=== PATIENT | female | born 1975 ===

== ENCOUNTER 2018-05-06 17:13 | Emergency (ER) | payer SELFPAY ==
[2018-05-06 17:27] VITALS: BP 113/79; PULSE 90; RESP 20; TEMP 98.4; O2SAT 100
--- NOTE | 2018-05-06 17:56 | C.PDOC ---
History Of Present Illness 42 y/o female presents to the ER complaining of right heel pain which has been present for the past 2 months. Patient states that the pain is sharp and worse with walking. She has not take any medications for the pain. Pt followed up with a specialist a few weeks ago and he gave her prescription for X-Rays, which she has not had done. She is requesting X-rays today. Denies having injury to area, numbness, tingling, pain elsewhere, or any other associated symptoms. Chief Complaint (Nursing): Lower Extremity Problem/Injury History Per: Patient History/Exam Limitations: no limitations Onset/Duration Of Symptoms: Days Current Symptoms Are (Timing): Still Present Severity: Moderate Past Medical History Reviewed: Historical Data, Nursing Documentation, Vital Signs Vital Signs: Last Vital Signs Temp 98.4 F 05/06/18 17:22 Pulse 90 05/06/18 17:22 Resp 20 05/06/18 17:22 BP 113/79 05/06/18 17:22 Pulse Ox 100 05/06/18 17:22 - Medical History PMH: Anemia Denies: Chronic Kidney Disease Surgical History: Appendectomy - [facility] Procedures OTHER CAST APPLICATION (02/14/14) Family History: States: No Known Family Hx Denies: Stroke - Social History Hx Tobacco Use: No Hx Alcohol Use: No Hx Substance Use: No - Immunization History Hx Tetanus Toxoid Vaccination: No Hx Influenza Vaccination: No Hx Pneumococcal Vaccination: No Review Of Systems Except As Marked, All Systems Reviewed And Found Negative. Constitutional: Negative for: Fever, Chills Eyes: Negative for: Pain, Vision Change Cardiovascular: Negative for: Chest Pain, Palpitations Respiratory: Negative for: Cough, Shortness of Breath Gastrointestinal: Negative for: Nausea, Vomiting, Abdominal Pain Musculoskeletal: Positive for: Leg Pain, Foot Pain (right) Skin: Negative for: Rash, Lesions, Bruising Neurological: Negative for: Weakness, Numbness Physical Exam - Physical Exam Appears: Well, Non-toxic, No Acute Distress Skin: Normal Color, Warm, Dry, No Ecchymosis Head: Atraumatic, Normacephalic Eye(s): bilateral: Normal Inspection Nose: Normal Oral Mucosa: Moist Neck: Normal, Normal ROM, Supple Chest: Symmetrical Cardiovascular: Rhythm Regular Respiratory: Normal Breath Sounds, No Rales, No Rhonchi, No Wheezing Back: Normal Inspection, No Vertebral Tenderness, No Decreased ROM, No Paraspinal Tenderness Extremity: Normal ROM, Tenderness (tenderness to plantar aspect of right heel), No Pedal Edema, No Calf Tenderness, Capillary Refill (<2s), No Deformity, No Swelling Extremity: Right: Painful To Bear Weight, Bilateral: Atraumatic, No Pedal Edema, Normal Color And Temperature, Normal ROM Pulses: Left Dorsalis Pedis: Normal, Right Dorsalis Pedis: Normal Neurological/Psych: Oriented x3, Normal Speech, Normal Cognition, Normal Motor, Normal Sensation Gait: Steady ED Course And Treatment O2 Sat by Pulse Oximetry: 100 (RA) Pulse Ox Interpretation: Normal Medical Decision Making Medical Decision Making: Plan: --X-Ray-Right Foot --Tylenol PO Right foot XR - heel spur; no fracture or dislocation. Plan of care discussed with patient, and strict instructions given regarding prescriptions, importance of follow up, and signs to return to Emergency Department, to include worsening pain, numbness, paresthesias, or any other new/worsening symptoms. Patient verbalizes understanding of discussion. Patient A&Ox3, ambulating with steady gait, stable for discharge home. Disposition - Disposition Referrals: [facility] [Outside] [facility] [Outside] Disposition: HOME/ ROUTINE Disposition Time: 18:00 Condition: STABLE Additional Instructions: [place] naproxeno diariamente segn sea necesario para el dolor Llame a los registros mdicos si desea desean copia de stacie santa x Seguimiento con podologa dentro de 2 mcgraw Seguimiento con el mdico de cabecera dentro de 2 mcgraw Volver a ER para nuevos/empeoramiento de los sntomas Prescriptions: Naproxen [Naprosyn] 500 mg PO DAILY PRN #14 tablet PRN Reason: Pain, Moderate (4-7) Instructions: Heel Spurs Forms: Gen Discharge Inst English, [employer] (English) Print Language: TELUGU - Clinical Impression Clinical Impression: Heel spur - PA / DIRECTOR TRANSLATION / Resident Statement MD/DO has reviewed & agrees with the documentation as recorded. - Scribe Statement The provider has reviewed the documentation as recorded by the Scribe Luisa Nayak Provider Attestation All medical record entries made by the Scribe were at my direction and personally dictated by me. I have reviewed the chart and agree that the record accurately reflects my personal performance of the history, physical exam, medical decision making, and the department course for this patient. I have also personally directed, reviewed, and agree with the discharge instructions and disposition.
--- NOTE | 2018-05-07 11:10 | RAD ---
Date of service: 05/06/2018 PROCEDURE: Right Foot Radiographs. HISTORY: Plantar calcaneal spur. No fracture. No lytic or blastic osseous lesion. COMPARISON: None. FINDINGS: BONES: Normal. No fracture. JOINTS: Normal. SOFT TISSUES: Normal. OTHER FINDINGS: None. IMPRESSION: Plantar calcaneal spur noted.
== END 2018-05-06 18:34 | disposition home or self-care (01) ==
LOC: C.ER 17:13
DX: M77.31 Calcaneal spur, right foot (principal)

== ENCOUNTER 2018-06-14 08:01 | Emergency (ER) | payer SELFPAY ==
[2018-06-14 08:12] VITALS: BMI 30.5
[2018-06-14 08:16] VITALS: TEMP 98.3; O2SAT 96
[2018-06-14 09:19] VITALS: BP 105/67; PULSE 71; RESP 21
--- NOTE | 2018-06-14 09:32 | C.PDOC ---
History Of Present Illness 42 years old female presents to ED for complaints of cough productive of yellow sputum, nasal congestion and sore throat that began 4 days ago. Patient reports positive sick contact at home (son). She also reports 1 episode of diarrhea yesterday. Denies flu shot, recent travel, recent antibiotics use, fever, chills, chest pain, shortness of breath, abdominal pain, nausea, vomiting, headache, neck pain, back pain or dizziness. Chief Complaint (Nursing): Cough, Cold, Congestion History Per: Patient History/Exam Limitations: no limitations Onset/Duration Of Symptoms: Hrs Current Symptoms Are (Timing): Still Present Location Of Pain: None Sick Contacts (Context): None Associated Symptoms: Sore Throat, Cough, Sputum (yellow ), Nasal Congestion, Diarrhea. denies: Fever, Chills Ear Symptoms: Bilateral: None Recent travel outside of the [place]: No Past Medical History Reviewed: Historical Data, Nursing Documentation, Vital Signs Vital Signs: Last Vital Signs Temp 98.3 F 06/14/18 08:12 Pulse 71 06/14/18 09:19 Resp 21 06/14/18 09:19 BP 105/67 06/14/18 09:19 Pulse Ox 96 06/14/18 09:19 - Medical History PMH: Anemia Denies: Chronic Kidney Disease Surgical History: Appendectomy - [facility] Procedures OTHER CAST APPLICATION (02/14/14) Family History: States: Unknown Family Hx Denies: Stroke - Social History Hx Tobacco Use: No Hx Alcohol Use: No Hx Substance Use: No - Immunization History Hx Tetanus Toxoid Vaccination: No Hx Influenza Vaccination: No Hx Pneumococcal Vaccination: No Review Of Systems Except As Marked, All Systems Reviewed And Found Negative. Constitutional: Negative for: Fever, Chills ENT: Positive for: Nose Congestion, Other (Sore throat ) Cardiovascular: Negative for: Chest Pain, Palpitations, Light Headedness Respiratory: Positive for: Cough, Sputum (yellow ). Negative for: Shortness of Breath Gastrointestinal: Positive for: Diarrhea. Negative for: Nausea, Vomiting, Abdominal Pain Genitourinary: Negative for: Dysuria, Frequency Musculoskeletal: Negative for: Neck Pain, Back Pain Skin: Negative for: Rash Neurological: Negative for: Weakness, Numbness, Headache, Dizziness Physical Exam - Physical Exam Appears: Well, Non-toxic, No Acute Distress Skin: Normal Color, Warm, Dry, No Rash Head: Atraumatic, Normacephalic Eye(s): bilateral: Normal Inspection, PERRL, EOMI Ear(s): Bilateral: Normal, Other (Cerumen impaction ) Nose: Normal Oral Mucosa: Moist Throat: Normal, No Erythema, No Exudate, No Drooling Neck: Normal ROM, Supple Cardiovascular: Rhythm Regular Respiratory: Normal Breath Sounds, No Rales, No Rhonchi, No Wheezing Gastrointestinal/Abdominal: Bowel Sounds (Active ), Soft, No Tenderness Back: Normal Inspection, No CVA Tenderness Extremity: Normal ROM Extremity: Bilateral: Atraumatic, No Pedal Edema, Normal Color And Temperature, Normal ROM Pulses: Left Radial: Normal, Right Radial: Normal Neurological/Psych: Oriented x3, Normal Speech Gait: Steady ED Course And Treatment O2 Sat by Pulse Oximetry: 96 (RA ) Pulse Ox Interpretation: Normal - Other Rad CXR X-Ray: Viewed By Me, Read By Radiologist Interpretation: Date of service: 06/14/2018. HISTORY: Cough. COMPARISON: No prior. TECHNIQUE: Chest PA and lateral. FINDINGS: LUNGS: Mild linear atelectasis and/or scarring left CP angle region. PLEURA: No significant pleural effusion identified. No pneumothorax apparent. CARDIOVASCULAR: No aortic atherosclerotic calcification present. Heart is mildly enlarged th. No pulmonary vascular congestion. OSSEOUS STRUCTURES: No significant abnormalities. VISUALIZED UPPER ABDOMEN: Normal. OTHER FINDINGS: None. IMPRESSION: Mild linear atelectasis and/or scarring left CP angle region. Medical Decision Making Medical Decision Making: Plan: * Rapid Strep * POC preg * CXR Diagnostic testing results and plan of care discussed with patient. Strict instructions given regarding prescription use, importance of followup, and signs/symptoms to return to ER including SOB, chest pain, fevers, chills, N/V, or any other new/worsening symptoms. Pt verbalized understanding of discussion. Patient is A&Ox3, ambulating with steady gait, with vital signs stable for discharge. Disposition - Disposition Referrals: [facility] [Outside] Disposition: HOME/ ROUTINE Disposition Time: 09:15 Condition: GOOD Additional Instructions: Aumentar los [place]os [place], no actividad vigorosa. [place] [employer] segn las indicaciones. [place] la medicina para la tos segn las indicaciones. Seguimiento con primaria dentro de 2 mcgraw Volver a la primo de emergencias con cualquier sntoma nuevo o que empeora Prescriptions: Azithromycin [Z-Eddie] 250 mg PO DAILY #6 tab Benzonatate [Tessalon Perle] 100 mg PO Q8H PRN #12 capsule PRN Reason: Cough Instructions: Acute Bronchitis Forms: Gen Discharge Inst Lao, [employer] (Lao) Print Language: KENYAN - Clinical Impression Clinical Impression: Lower resp. tract infection - PA / DEPOSITION REPORTER / Resident Statement MD/DO has reviewed & agrees with the documentation as recorded. - Scribe Statement The provider has reviewed the documentation as recorded by the Scribe Enmanuel Saldana All medical record entries made by the Scribe were at my direction and personally dictated by me. I have reviewed the chart and agree that the record accurately reflects my personal performance of the history, physical exam, medical decision making, and the department course for this patient. I have also personally directed, reviewed, and agree with the discharge instructions and disposition.
--- NOTE | 2018-06-14 09:35 | RAD ---
Date of service: 06/14/2018 HISTORY: Cough COMPARISON: No prior. TECHNIQUE: Chest PA and lateral FINDINGS: LUNGS: Mild linear atelectasis and/or scarring left CP angle region. PLEURA: No significant pleural effusion identified. No pneumothorax apparent. CARDIOVASCULAR: No aortic atherosclerotic calcification present. Heart is mildly enlarged th. No pulmonary vascular congestion. OSSEOUS STRUCTURES: No significant abnormalities. VISUALIZED UPPER ABDOMEN: Normal. OTHER FINDINGS: None. IMPRESSION: Mild linear atelectasis and/or scarring left CP angle region.
== END 2018-06-14 09:51 | disposition home or self-care (01) ==
LOC: C.ER 08:01
DX: J22 Unspecified acute lower respiratory infection (principal)